=== PATIENT | male | born 1970 | race Caucasian/White ===

== ENCOUNTER 2020-03-02 10:53 | Emergency (ER) | payer OTHER, SELFPAY ==
--- NOTE | ~2020-03-02 | XR_ITS ---
EXAMINATION: XR shoulder RT min 2V DATE: 03/02/2020 11:40 INDICATION: Right shoulder pain TECHNIQUE: AP internally and externally rotated, AP oblique externally rotated and transscapular Y vi ews of the right shoulder were obtained. COMPARISON: None FINDINGS: Normal alignment. Age-indeterminate fracture at the anterior right fourth rib. No other fractures mellissa ntified. Glenohumeral joint is normal. Mild acromioclavicular osteoarthritis. Bone island at the righ t humeral head. Soft tissues are unremarkable. Right lung is clear with no airspace opacities, pleura l effusion or pneumothorax. IMPRESSION: 1. Age-indeterminate fracture along the anterior right fourth rib. 2. Mild right acromioclavicular osteoarthritis. Reviewed, dictated and finalized at location A.
[2020-03-02 11:00] VITALS: BP 156/81; PULSE 68; RESP 16; TEMP 36.7; O2SAT 95
[2020-03-02] MEDS: KETOROLAC (*BKC) 60 MG/2 ML VIAL IM (11:43)
--- NOTE | 2020-03-02 11:53 | ED.UPPEXIN ---
HPI - Extremity Injury (Upper) General Chief Complaint: Extremity Injury, Upper Stated Complaint: R shoulder Pain History of Present Illness HPI narrative: this is a 49-year-old male presents with right shoulder pain with decreased range of motion having pain in the right shoulder that he rates at about 8/10. No known direct injury has been shooting his firearm at the at shooting range and subsequent to that has been having right shoulder discomfort, there is no numbness or tingling in his in his arm has a good brisk radial pulse on the right with decreased range of motion and tenderness in the shoulder with palpation and movement. Has tried [id number] Aleve with minimal relief. Called his primary care physician [facility] the [facility] and told him to have the shoulder x-rayed at the nearest emergency department. complaint: injury to: right Other Extremity Injury: Right: shoulder ( pain with decreased range of motion) Handedness: right Place: home Severity: moderate Relieving factors: immobilization and medication Exacerbating factors: movement of extremity Context: other ( uncertain) Related Data Home Medications Medication Instructions Recorded Confirmed atorvastatin 20 mg PO DAILY 03/02/20 03/02/20 esomeprazole magnesium [Nexium] 40 mg PO DAILY 03/02/20 03/02/20 gabapentin 300 mg PO DAILY 03/02/20 03/02/20 hydrochlorothiazide 25 mg PO DAILY 03/02/20 03/02/20 ibuprofen 200 mg PO Q6H PRN 03/02/20 03/02/20 lisinopril 40 mg PO DAILY 03/02/20 03/02/20 Allergies Allergy/AdvReac Type Severity Reaction Status Date / Time No Known Allergies Allergy Verified 03/02/20 11:18 Review of Systems Review of Systems: All systems reviewed & are unremarkable except as noted in HPI and below [facility] Past Medical History Medical History HTN (hypertension) Social History Social History Alcohol intake: current Exam Const: General: no acute distress and alert Orientation/consciousness: patient oriented x3 HENMT: Head: normal to inspection Eyes: Conjunctivae: conjunctivae normal Pupils: Equal, round and reactive pupils present Neck: Neck: normal visual inspection, no lymphadenopathy and no meningeal signs Lymphatic: no lymphadenopathy noted Chest: Chest palpation & inspection: normal inspection of the chest Resp: Effort & Inspection: normal respiratory effort Auscultation: clear to auscultation bilaterally Cardio: Rate: regular rate Rhythm: regular rhythm GI: GI Palp: Yes Soft to palpation Back/Spine/Pelvis: Back: no CVA tenderness Skin: General skin exam: normal color Rashes: no rashes Extrem: Other: right shoulder with some decreased range of motion and limited range of motion with provocative movements, does have tenderness in the bicipital groove Course Course Emergency Course: after reassessment after giving IM Toradol the patient says that he can feel some relief in his pain level. Advised to follow-up with his primary care physician at the [facility] for possible MRI. Critical Care Time Critical Care Time Critical Care Time: No Discharge Plan Discharge Clinical Impression: Right shoulder strain Qualifiers: Encounter type: initial encounter Qualified Code(s): S46.911A - Strain of unspecified muscle, fascia and tendon at shoulder and upper arm level, right arm, initial encounter Patient Disposition: Home, Self-Care Condition: Stable Instructions: Antibiotic Form, Rotator Cuff Injury (ED) Additional Instructions: take medicine as prescribed, and follow-up with primary care physician for further evaluation and treatment. Prescriptions: New tramadol [Ultram] 50 mg tablet 50 mg PO Q6H PRN (Reason: pain) Qty: 20 RF: 0 No Action atorvastatin 20 mg Tablet 20 mg PO DAILY RF: 0 ibuprofen 200 mg Capsule 200 mg PO Q6H PRN (Reason: Pain) RF: 0 esomeprazole magnesium [Nexium]
== END 2020-03-02 12:04 | disposition home or self-care (01) ==
PROVIDERS: Emergency Provider Emergency Medicine
DX: S46.911A Strain of unspecified muscle, fascia and tendon at shoulder and upper arm level, right arm, initial encounter (principal)
CPT/HCPCS: 73030; 96372; 99283; J1885

== ENCOUNTER 2020-05-19 21:44 | Emergency (ER) | payer OTHER, SELFPAY ==
--- NOTE | ~2020-05-19 | CT_ITS ---
EXAMINATION: CT pelvis wo con DATE: 05/19/2020 23:02 INDICATION: Left pelvic pain after fall from ladder TECHNIQUE: Computed tomography (CT) of the pelvis was performed without intravenous contrast. The dos e-length product (DLP) was 811.11 mGy-cm. Automated exposure control and iterative reconstruction janine hnique were employed. COMPARISON: None FINDINGS: There is no fracture. Bone alignment is normal. The femoral heads are well-seated in their acetabula. Calcified atherosclerosis is noted. There are bilateral inguinal hernias containing fat. T he appendix is normal. There are no dilated loops of bowel. No free fluid is present in the pelvis. IMPRESSION: 1. No acute osseous abnormality. Reviewed, dictated and finalized at location A.
--- NOTE | ~2020-05-19 | CT_ITS ---
EXAMINATION: CT thoracic lumbar wo con DATE: 05/19/2020 23:03 INDICATION: Back pain after fall from ladder TECHNIQUE: Computed tomography (CT) of the thoracic and lumbar spine was performed without intravenou s contrast. The dose-length product (DLP) was 2101.00 mGy-cm. Iterative reconstruction was used. COMPARISON: None FINDINGS: Thoracic spine: There is no fracture, dislocation, or subluxation. The vertebral body heights and ali gnment are normal. There is mild loss of intervertebral disc space height at several levels of the th oracic spine. The prevertebral soft tissues are normal. Small degenerative osteophytes project from t he anterior endplates of multiple vertebral bodies. There is a 1 mm nonobstructing stone of the left kidney upper pole. Lumbar spine: There is no fracture, dislocation, or subluxation. The vertebral body heights, alignmen t, and intervertebral disc spaces are normal. Minimal posterior disc bulges are seen at L4-5 and L5-S 1. Calcified atherosclerosis is noted. There is a 1.3 cm cyst of the right kidney. IMPRESSION: 1. Mild thoracic and lumbar spondylosis without acute findings. Reviewed, dictated and finalized at location A.
[2020-05-19 22:00] VITALS: BP 142/80; PULSE 70; RESP 20; TEMP 36.6; O2SAT 97
--- NOTE | 2020-05-19 22:19 | ED.BACK ---
HPI - Back Pain/Injury General Chief Complaint: Back Pain/Injury Stated Complaint: back pain Time Seen by Provider: 05/19/20 22:19 Source: patient Mode of arrival: ambulatory Limitations: no limitations History of Present Illness HPI Narrative: 49-year-old man comes in today complaining of left low back pain that radiates down his left leg that started earlier this evening. Patient states that he was standing 5 or 6 ft upon a ladder and fell backwards landing on his left buttock. He denies any neck or head pain and did not hit his head. He denies any numbness or tingling. He states that movement and walking is very painful in his back and buttock. Is no history of back pain or injury or surgery. MD elicited complaint: back pain and back injury Onset (ago): hour(s) (4) Timing: constant Severity: severe Similar Symptoms Previously: No Quality: sharp and aching Location: lumbar spine and left lower back Radiation: buttocks and left upper leg Exacerbating factors: movement and walking Relieving factors: none Context: fall Related Data Home Medications Medication Instructions Recorded Confirmed atorvastatin 20 mg PO DAILY 03/02/20 05/19/20 esomeprazole magnesium [Nexium] 40 mg PO DAILY 03/02/20 05/19/20 gabapentin 300 mg PO DAILY 03/02/20 05/19/20 hydrochlorothiazide 25 mg PO DAILY 03/02/20 05/19/20 ibuprofen 200 mg PO Q6H PRN 03/02/20 05/19/20 lisinopril 40 mg PO DAILY 03/02/20 05/19/20 Allergies Allergy/AdvReac Type Severity Reaction Status Date / Time No Known Allergies Allergy Verified 03/02/20 11:18 Review of Systems Constitutional: Constitutional: Denies weakness Cardiovascular: Cardiovascular: Denies chest pain and Denies radiating jaw, neck or arm pain Respiratory: Respiratory: Denies cough, Denies dyspnea and Denies wheezing Gastrointestinal: Gastrointestinal: Denies abdominal pain, Denies nausea and Denies vomiting Genitourinary: Genitourinary: Denies hematuria, Denies dysuria and Denies urinary frequency Musculoskeletal: Musculoskeletal: Reports back pain, Denies arthralgias and Denies joint swelling Integumentary/Breasts: Skin/Breast: Denies pruritus, Denies erythema and Denies rash Neurologic: Denies vertigo, Denies dizziness and Denies syncope Hematologic/Lymphatic: Hematologic/Lymphatic: Denies easy bleeding and Denies easy bruising Allergic/Immunologic: Allergic/Immunologic: Denies lip swelling and Denies tongue swelling PMF Past Medical History Medical History (Updated 05/19/20 @ 23:37 by Musa Foster MD) HTN (hypertension) Surgical History Surgical History H/O knee surgery multiple right History of ankle surgery multiple right Social History Social History Smoking status: Never smoker Alcohol intake: current Substance use: never Living arrangements: with family Gender identity (if verbalized by the patient): Male Exam Const: General: alert Nutritional Appearance: obese Orientation/consciousness: patient oriented x3 Limitations: no limitations Other: moderate to severe acute distress. Eyes: Conjunctivae: conjunctivae normal EOM: EOMs intact bilaterally Resp: Effort & Inspection: normal respiratory effort and not labored Auscultation: clear to auscultation bilaterally, no rales, no rhonchi and no wheezes Cardio: Rate: regular rate Rhythm: regular rhythm Heart sounds: no murmurs Back/Spine/Pelvis: Other: Tenderness palpation over the left SI joint and the left posterior hip. Skin: General skin exam: normal color, no jaundice and no pallor Rashes: no rashes Neuro: General: patient oriented x3, moves all extremities, no focal motor deficits and CN's II-XI intact bilaterally Speech: normal speech Gait exam (Neuro): Normal gait present Extrem: General: normal to inspection and no clubbing, cyanosis or edema Psych: Appearance: gr
[2020-05-19] MEDS: ONDANSETRON INJ 4 MG/2 ML VIAL IV PUSH (22:35)
[2020-05-19] MEDS: HYDROmorphone HCL INJ (*CRX) 2 MG/ML VIAL 0.5 MG IV PUSH ×2 (22:35→22:50)
[2020-05-19 23:00] VITALS: BP 140/72; PULSE 77; RESP 17; O2SAT 97
--- NOTE | 2020-05-19 23:13 | PC.NURSE ---
Report to Angela RN
[2020-05-20 00:20] VITALS: BP 120/77; PULSE 70; RESP 18; TEMP 36.6; O2SAT 98
== END 2020-05-20 00:20 | disposition home or self-care (01) ==
PROVIDERS: Emergency Provider Emergency Medicine
DX: M54.30 Sciatica, unspecified side (principal); S39.92XA Unspecified injury of lower back, initial encounter; W11.XXXA Fall on and from ladder, initial encounter
CPT/HCPCS: 72128; 72131; 72192; 96374; 96375; 99284; J1170; J2405

== ENCOUNTER 2023-05-29 13:29 | Emergency (ER) | payer OTHER, SELFPAY ==
[2023-05-29] VITALS (7 sets, daily range): BP systolic 126–170; BP diastolic 67–74; PULSE 68–80; RESP 12–25; TEMP 36.6; O2SAT 92–96
--- NOTE | ~2023-05-29 | XR_ITS ---
EXAMINATION: XR chest 1V portable INDICATION: Chest pain TECHNIQUE: Portable AP chest at 1400 hours COMPARISON: None available FINDINGS: There is mild diffuse interstitial pattern. No pleural effusion or pneumothorax. The cardio mediastinal silhouette is normal. IMPRESSION: 1. Mild pulmonary edema. Reviewed, dictated and finalized at location A. IMPRESSION: 1. Mild pulmonary edema.
--- NOTE | 2023-05-29 13:33 | ECG_ITS ---
Measurements Intervals [place] Rate: 70 P: 68 [place]: 148 QRS: 89 QRSD: 103 T: 44 QT: 379 QTc: 411 Interpretive Statements SINUS RHYTHM NORMAL ECG NO PREVIOUS ECG AVAILABLE FOR COMPARISON Electronically Signed On 05-31-2023 8:34:46 CDT by Rc Rivera M.D.
[2023-05-29] MEDS: ASPIRIN 81 MG CHEWABLE TABLET 324 MG PO (13:52)
[2023-05-29] MEDS: NITROGLYCERIN SL 0.4 MG TABLET SUBLINGUAL ×2 (13:52→14:03)
[2023-05-29 13:57] LABS: Basophils Absolute Auto 0.08 K/mm3 (0.00-0.10); Basophils Percent Auto 0.9 % (0.0-1.0); Eosinophils Absolute Auto 0.15 K/mm3 (0.02-0.50); Eosinophils Percent Auto 1.6 % (1.0-6.0); Hematocrit 48.2 % (40.0-54.0); Hemoglobin 16.6 g/dL (14.0-18.0); Immature Granulocyte Absolute 0.03 K/mm3 (0.00-0.00); Immature Granulocyte Percent A 0.3 % (0.0-0.0); Lymphocytes Absolute Auto 3.25 K/mm3 (1.10-4.50); Lymphocytes Percent Auto 35.5 % (18.0-42.0); Mean Corpuscular HGB Conc 34.4 g/dL (32.0-36.0); Mean Corpuscular Hemoglobin 30.8 pg (27.0-31.0); Mean Corpuscular Volume 89.4 fL (78.0-102.0); Mean Platelet Volume 11.3 fl (8.7-11.0); Monocytes Absolute Auto 0.82 K/mm3 (0.10-0.90); Neutrophils Absolute Auto 4.8 K/mm3 (1.7-7.2); Neutrophils Percent Auto 52.7 % (50.0-70.0); Platelet Count Result 213 K/mm3 (150-420); Red Blood Count 5.39 M/mm3 (4.70-6.10); Red Cell Distribution Width 12.2 % (11.6-14.4); White Blood Count 9.2 K/mm3 (4.8-10.8)
--- NOTE | 2023-05-29 14:04 | PC.NURSE ---
1355 nirto #1 given pain 5/10 b/p 150/67 P 73 R 20 SAT 94 1402 NITRO #2 given pain 3/10 B/P 140/67 P 77 R 20 SAT 94 1412 PT STATES CHEST PAIN IS GONE
[2023-05-29 14:14] LABS: INR 1.1; Partial Thromboplastin Time 29.1 SEC (23.90-30.70); Prothrombin Time 11.5 Seconds (9.50-12.10)
[2023-05-29 14:17] LABS: D Dimer 0.39 mg/L (0.19-0.50)
[2023-05-29 14:23] LABS: Alanine Aminotransferase 111 U/L (16-63); Albumin Level 3.6 g/dL (3.4-5.0); Alkaline Phosphatase 135 U/L (46-116); Anion Gap 10 mmol/L (8-16); Aspartate Amino Transferase 43 U/L (15-37); Bilirubin,Total 0.4 mg/dL (0.00-1.00); Blood Urea Nitrogen 9 mg/dL (7-18); Calcium 9.4 mg/dL (8.5-10.1); Carbon Dioxide 25 mmol/L (21-32); Chloride 103 mmol/L (98-108); Estimated Glomerular Filt Rate > 60; Glucose 133 mg/dL (70-99); Lipase 116 U/L (16-77); NT Pro B Type Natriuretic Pept 44 pg/mL (0-125); Osmolality Calculated 286 mOsm/kg (285-295); Potassium 3.8 mmol/L (3.5-5.1); Sodium 138 mmol/L (136-145); Total Protein 6.9 g/dL (6.4-8.2); Troponin I 5.1 ng/L (0.00-60.4)
[2023-05-29 14:24] LABS: CRP < 0.5 mg/dL (0.0-0.9)
--- NOTE | 2023-05-29 14:36 | ED.CHESTPAIN ---
HPI - Chest Pain General Chief Complaint: Chest Pain Stated Complaint: chest pain Time Seen by Provider: 05/29/23 13:35 Source: patient and family Mode of arrival: ambulatory Limitations: no limitations History of Present Illness HPI narrative: this is a 52-year-old male that presents with chest pain that he rates about a 5 out of 10 has been having episodic chest pain off and on for the last month or so he has frequent migration of his pain usually in his right side and his back and currently it has settled into his chest with no diaphoresis no shortness of breath no nausea vomiting. Patient does have hyperlipidemia is a tobacco user and a family history of heart disease. MD complaint: chest discomfort Onset (ago): month(s) Timing of current episode: episodic Prior episodes: Yes Onset: during rest Pain location: left chest Pain radiation: none Severity: mild Pain scale (0-10): 5 Quality: tightness and aching Relieving factors: nitroglycerin Exacerbating factors: nothing Related Data Home Medications Medication Instructions Recorded Confirmed atorvastatin 20 mg tablet 20 mg PO DAILY 03/02/20 05/29/23 hydrochlorothiazide 25 mg tablet 25 mg PO DAILY 03/02/20 05/29/23 lisinopril 40 mg tablet 40 mg PO DAILY 03/02/20 05/29/23 omeprazole 40 mg capsule,delayed 40 mg PO BID 05/29/23 05/29/23 release Allergies Allergy/AdvReac Type Severity Reaction Status Date / Time No Known Allergies Allergy Verified 05/29/23 13:57 Review of Systems Review of Systems: All systems reviewed & are unremarkable except as noted in HPI and below PMFSH Past Medical History Medical History HTN (hypertension) Surgical History Surgical History H/O knee surgery multiple right History of ankle surgery multiple right Social History Social History Smoking status: Never smoker Alcohol intake: current Substance use: never Living arrangements: with family Gender identity (if verbalized by the patient): Male Exam Const: General: healthy appearing Nutritional Appearance: well nourished Orientation/consciousness: patient oriented x3 Limitations: no limitations HENMT: Head: normal to inspection Eyes: Conjunctivae: conjunctivae normal Pupils: Equal, round and reactive pupils present EOM: EOMs intact bilaterally Neck: Neck: normal visual inspection Chest: Chest palpation & inspection: normal inspection of the chest and tenderness Other: Reproducible chest pain Resp: Effort & Inspection: normal respiratory effort Auscultation: clear to auscultation bilaterally Cardio: Rate: regular rate Rhythm: regular rhythm GI: GI Palp: Yes Soft to palpation Back/Spine/Pelvis: Back: no CVA tenderness Skin: General skin exam: normal color Rashes: no rashes Wounds: no wounds Neuro: General: patient oriented x3 and moves all extremities Extrem: General: normal to inspection Psych: Mental Status: mental status grossly normal Course Course Emergency Course: patient 2 nitro sublingual which relieved his pain completely EKG shows normal sinus rhythm no ST or T changes troponin negative patient was given a full-dose aspirin, the pain is reproducible in the epigastric and sternal border on the left with no radiation Of his pain. EKG shows normal sinus rhythm, chest x-ray shows mild pulmonary edema with a normal BNP and the rest of his blood work was unremarkable. Vital Signs Vital signs: Vital Signs Temperature 36.6 C 05/29/23 13:29 Pulse Rate 74 05/29/23 13:29 Respiratory Rate 16 05/29/23 13:29 Blood Pressure 170/74 H 05/29/23 13:29 Pulse Oximetry 96 05/29/23 13:29 Oxygen Delivery Room Air 05/29/23 13:29 Temperature 36.6 C 05/29/23 13:29 Pulse Rate 79 05/29/23 13:56 Respiratory Rate 16 05/29/23 13:29 Blood Pr
== END 2023-05-29 14:51 | disposition home or self-care (01) ==
PROVIDERS: Emergency Provider Emergency Medicine
DX: R07.89 Other chest pain (principal); E78.5 Hyperlipidemia, unspecified; I10 Essential (primary) hypertension; Z82.49 Family history of ischemic heart disease and other diseases of the circulatory system; Z79.891 Long term (current) use of opiate analgesic
CPT/HCPCS: 36415; 71045; 80053; 83690; 83880; 84484; 85025; 85380; 85610; 85730; 86140; 93005; 99284; A9270

== ENCOUNTER 2023-06-23 20:20 | Emergency (ER) | payer OTHER, SELFPAY ==
--- NOTE | ~2023-06-23 | CT_ITS ---
EXAMINATION: CT soft tiss nk chst ab pel w DATE: 06/23/2023 22:22 INDICATION: Neck pain. History of lung cancer. TECHNIQUE: Computed tomography (CT) of the neck, chest, abdomen, and pelvis was performed with 100 c c Omnipaque 350 intravenous contrast. The dose-length product was 2063.95 mGy-cm. Automated exposure control and iterative reconstruction technique were employed. COMPARISON: CT pelvis dated 05/19/2020 and chest x-ray dated 05/29/2023 FINDINGS: No intracranial abnormality identified. No intracranial abnormal enhancement. There are mil dly enlarged lymph nodes at the angle the mandible bilaterally, left greater than right. Cannot exclu de metastatic disease. The mucosal and parapharyngeal spaces are symmetric. No significant abnormalit y of the mucosal space. Thyroid gland is unremarkable. No significant vascular abnormality. Enlarged left hilar lymph nodes which are low density, largest measuring 1.9 x 1.6 cm. Heart size nor mal. No significant pleural or pericardial effusion. There is a 1.8 cm nodule with irregular margins. Segment left lower lobe abutting the pleural surface. There is emphysema. No endobronchial lesions. No pneumothorax. Nodular liver surface, compatible with cirrhosis. There is splenomegaly. The portal vein is not adequ ately opacified. Cannot exclude portal venous thrombosis. There were varices in the upper abdomen anthony rounding the esophagus, stomach and liver. Nonobstructive bowel gas pattern. There is atherosclerosis of the aorta. The pancreas, adrenal glands are unremarkable. There is a small low-density lesion rig ht kidney, most likely benign cysts. There is a 2 mm nonobstructing left renal stone. IMPRESSION: 1. Left lower lobe mass superior segment measuring 1.9 x 1.6 cm, consistent with bronchogenic carcino ma until proven otherwise. Enlarged left hilar and bilateral cervical lymph nodes, suspicious for met astatic disease. 2: Cirrhosis of the liver with probable portal hypertension with splenomegaly. Reviewed, dictated and finalized at location A. IMPRESSION: 1. Left lower lobe mass superior segment measuring 1.9 x 1.6 cm, consistent wit h bronchogenic carcinoma until proven otherwise. Enlarged left hilar and bilate ral cervical lymph nodes, suspicious for metastatic disease. 2: Cirrhosis of the liver with probable portal hypertension with splenomegaly.
[2023-06-23 20:30] VITALS: BP 156/87; PULSE 108; RESP 20; TEMP 37; O2SAT 97
--- NOTE | 2023-06-23 20:36 | ED.GENADULT ---
HPI - General Adult General Chief complaint: Abdominal Pain Stated complaint: epigastric pain History of Present Illness HPI narrative: 52yo man recently diagnosed new left lower lung malignant mass most likely compatible with primary bronchogenic carcinoma, awaiting follow-up for PET and biopsy, presents with new onset epigastric, left upper abdominal pain, and periumbilical pain, worse with any movement or breathing. Also new pain in left neck. No fevers or chills. Having regular bowel movements. Recently constipated but took Miralax which has resolved the constipation. Related Data Home Medications Medication Instructions Recorded Confirmed atorvastatin 20 mg tablet 20 mg PO DAILY 03/02/20 05/29/23 hydrochlorothiazide 25 mg tablet 25 mg PO DAILY 03/02/20 05/29/23 lisinopril 40 mg tablet 40 mg PO DAILY 03/02/20 05/29/23 omeprazole 40 mg capsule,delayed 40 mg PO BID 05/29/23 05/29/23 release Allergies Allergy/AdvReac Type Severity Reaction Status Date / Time No Known Allergies Allergy Verified 05/29/23 13:57 Review of Systems Review of Systems: All systems reviewed & are unremarkable except as noted in HPI and below Constitutional: Constitutional: Denies chills and Denies fever(s) ENT: Denies dysphagia and Denies dizziness Cardiovascular: Cardiovascular: Denies chest pain Respiratory: Respiratory: Denies chest congestion, Denies cough and Denies dyspnea Gastrointestinal: Gastrointestinal: Reports abdominal pain, Reports bloating, Reports constipation and Reports nausea Genitourinary: Genitourinary: Reports oliguria Comments: feels dehydrated - his doc stopped his diuretics PMFSH Past Medical History Medical History HTN (hypertension) Surgical History Surgical History H/O knee surgery multiple right History of ankle surgery multiple right Social History Social History Smoking status: Never smoker Alcohol intake: current Substance use: never Living arrangements: with family Gender identity (if verbalized by the patient): Male Exam Const: General: healthy appearing and no acute distress Nutritional Appearance: well nourished Eyes: Conjunctivae: conjunctivae normal Resp: Effort & Inspection: normal respiratory effort Auscultation: clear to auscultation bilaterally Cardio: Rate: regular rate Rhythm: regular rhythm Heart sounds: no murmurs GI: Inspection: non-distended GI Palp: Yes Soft to palpation and No Tenderness to palpation present (GI) Skin: General skin exam: normal color, no jaundice and no pallor Medical Decision Making MDM Narrative Medical decision making narrative: LUQ abd pain, neck pain DDx metastatic malignancy, pancreatitis, indigestion, colitis. Needs CT, belly labs, analgesia. Looks dehydrated, needs IV fluids. Lab Data 06/23/23 20:48 06/23/23 20:48 Labs: Lab Results 06/23/23 Range/Units 20:48 WBC 13.4 H (4.8-10.8) K/mm3 RBC 5.23 (4.70-6.10) M/mm3 Hgb 16.5 (14.0-18.0) g/dL Hct 48.4 (40.0-54.0) % MCV 92.5 (78.0-102.0) fL MCH 31.5 H (27.0-31.0) pg MCHC 34.1 (32.0-36.0) g/dL RDW 12.8 (11.6-14.4) % Plt Count 224 (150-420) K/mm3 MPV 11.5 H (8.7-11.0) fl Immature Gran % (Auto) 0.3 H (0.0-0.0) % Neut % (Auto) 65.9 (50.0-70.0) % Lymph % (Auto) 22.3 (18.0-42.0) % [place] % (Auto) 10.6 (2.0-11.0) % Eos % (Auto) 0.3 L (1.0-6.0) % Baso % (Auto) 0.6 (0.0-1.0) % Lymph # (Auto) 2.98 (1.10-4.50) K/mm3 [place] # (Auto) 1.41 H (0.10-0.90) K/mm3 Eos # (Auto) 0.04 (0.02-0.50) K/mm3 Baso # (Auto) 0.08 (0.00-0.10) K/mm3 Abs Immat Gran (auto) 0.04 H (0.00-0.00) K/mm3 Absolute Neuts (auto) 8.8 H (1.7-7.2) K/mm3 Absolute Nucleated RBC 0.00 (0.00-0.00) K/mm3 Nucleated RBC % 0.0 (0-0.0) %
[2023-06-23 20:51] LABS: Basophils Absolute Auto 0.08 K/mm3 (0.00-0.10); Basophils Percent Auto 0.6 % (0.0-1.0); Eosinophils Absolute Auto 0.04 K/mm3 (0.02-0.50); Eosinophils Percent Auto 0.3 % (1.0-6.0); Hematocrit 48.4 % (40.0-54.0); Hemoglobin 16.5 g/dL (14.0-18.0); Immature Granulocyte Absolute 0.04 K/mm3 (0.00-0.00); Immature Granulocyte Percent A 0.3 % (0.0-0.0); Lymphocytes Absolute Auto 2.98 K/mm3 (1.10-4.50); Lymphocytes Percent Auto 22.3 % (18.0-42.0); Mean Corpuscular HGB Conc 34.1 g/dL (32.0-36.0); Mean Corpuscular Hemoglobin 31.5 pg (27.0-31.0); Mean Corpuscular Volume 92.5 fL (78.0-102.0); Mean Platelet Volume 11.5 fl (8.7-11.0); Monocytes Absolute Auto 1.41 K/mm3 (0.10-0.90); Monocytes Percent Auto 10.6 % (2.0-11.0); Neutrophils Absolute Auto 8.8 K/mm3 (1.7-7.2); Neutrophils Percent Auto 65.9 % (50.0-70.0); Platelet Count Result 224 K/mm3 (150-420); Red Blood Count 5.23 M/mm3 (4.70-6.10); Red Cell Distribution Width 12.8 % (11.6-14.4); White Blood Count 13.4 K/mm3 (4.8-10.8)
[2023-06-23] MEDS: SODIUM CHLORIDE 0.9% IV 1,000 ML 999 ML IV CONT (20:51)
[2023-06-23] MEDS: FAMOTIDINE 20 MG/2 ML VIAL 40 MG IV PUSH (20:52)
[2023-06-23] MEDS: KETOROLAC 30 MG/ML VIAL (*BKC) IV PUSH (20:53)
[2023-06-23] MEDS: MORPHINE SULFATE (*CRX) 4 MG/ML INJ IV PUSH (20:54)
[2023-06-23 21:09] LABS: Alanine Aminotransferase 58 U/L (16-63); Albumin Level 3.4 g/dL (3.4-5.0); Alkaline Phosphatase 168 U/L (46-116); Anion Gap 12 mmol/L (8-16); Aspartate Amino Transferase 37 U/L (15-37); Blood Urea Nitrogen 6 mg/dL (7-18); Calcium 9.3 mg/dL (8.5-10.1); Carbon Dioxide 24 mmol/L (21-32); Chloride 103 mmol/L (98-108); Estimated Glomerular Filt Rate > 60; Glucose 94 mg/dL (70-99); Lipase 77 U/L (16-77); Magnesium 1.8 mg/dL (1.8-2.4); Osmolality Calculated 285 mOsm/kg (285-295); Potassium 3.5 mmol/L (3.5-5.1); Sodium 139 mmol/L (136-145); Total Protein 7.2 g/dL (6.4-8.2)
[2023-06-23 21:12] LABS: Lactic Acid Reflex 1.8 mmol/L (0.4-2.0)
[2023-06-23] MEDS: diphenhydrAMINE HCl INJ 50 MG/ML VIAL 25 MG IV PUSH (22:36)
[2023-06-23] MEDS: PROCHLORPERAZINE EDISYLATE 10 MG/2 ML VIAL IV PUSH (22:36)
[2023-06-23 23:16] VITALS: BP 148/80; PULSE 98; RESP 18; TEMP 36.8; O2SAT 97
== END 2023-06-23 23:16 | disposition home or self-care (01) ==
PROVIDERS: Emergency Provider Emergency Medicine
DX: R10.10 Upper abdominal pain, unspecified (principal); M54.2 Cervicalgia; R91.8 Other nonspecific abnormal finding of lung field; I10 Essential (primary) hypertension
CPT/HCPCS: 36415; 70491; 71260; 74177; 80053; 83605; 83690; 83735; 85025; 96361; 96374; 96375; 99284; J0780; J1200; J1885; J2270; J7030; Q9967

== ENCOUNTER 2023-08-02 18:08 | Emergency (ER) | payer OTHER, SELFPAY ==
--- NOTE | ~2023-08-02 | CT_ITS ---
EXAMINATION: CT cervical spine wo con DATE: 08/02/2023 21:51 INDICATION: L Radicular pain TECHNIQUE: Computed tomography (CT) of the cervical spine was performed without intravenous contrast. Automated exposure control and iterative reconstruction technique were employed. The dose-length pro duct was 466.91 mGy-cm. COMPARISON: CT soft tissue neck chest abdomen and pelvis 06/23/2023. FINDINGS: Vertebral Body Alignment: Intact. Craniocervical and atlantoaxial alignment: Moderate degenerative change. Alignment intact. Osseous structures/fracture: No evidence of a lytic or blastic process in the visualized spine. No e vidence of acute fracture. Cervical soft tissues: The paraspinal soft tissues planes are maintained. Trace bilateral mastoid flu id. 10 mm left upper lobe pulmonary nodule. Bilateral enlarged anterior cervical chain lymph nodes. Degenerative changes: No significant degenerative changes. IMPRESSION: No acute fracture or traumatic malalignment in the cervical spine. No severe central canal or neural foraminal narrowing. 10 mm left upper lobe pulmonary nodule, significantly decreased in size may represent interval treatm ent response or a resolving infectious/inflammatory focus depending on the clinical context. Grossly stable anterior cervical chain lymphadenopathy. Reviewed, dictated and finalized at location K. BATOR MACHINE OPERATOR IMPRESSION: No acute fracture or traumatic malalignment in the cervical spine. No severe central canal or neural foraminal narrowing. 10 mm left upper lobe pulmonary nodule, significantly decreased in size may rep resent interval treatment response or a resolving infectious/inflammatory focus depending on the clinical context. Grossly stable anterior cervical chain lymphadenopathy.
--- NOTE | ~2023-08-02 | US_ITS ---
EXAMINATION: US venous doppler UE LT DATE: 08/02/2023 19:32 INDICATION: swelling . TECHNIQUE: Grayscale ultrasound images without and with compression and Doppler ultrasound images of the left upper extremity veins were obtained. COMPARISON: None. FINDINGS: The visualized portions of the left internal jugular vein, subclavian vein, axillary vein, brachial v eins, basilic vein, cephalic vein, radial vein, and ulnar vein are patent. IMPRESSION: No deep venous thrombosis. Reviewed, dictated and finalized at location K. CTOR OF SPECIAL EDUCATION IMPRESSION: No deep venous thrombosis.
[2023-08-02 18:10] VITALS: BP 140/86; PULSE 80; RESP 18; TEMP 37.6; O2SAT 100
--- NOTE | 2023-08-02 18:45 | ECG_ITS ---
Measurements Intervals [place] Rate: 76 P: 72 [place]: 135 QRS: 71 QRSD: 89 T: 42 QT: 381 QTc: 430 Interpretive Statements SINUS RHYTHM COMPARED TO ECG 05/29/2023 13:39:44 NO SIGNIFICANT CHANGES Electronically Signed On 08-03-2023 10:26:34 [employer] by Ej Gutierrez M.D.
[2023-08-02] MEDS: HYDROmorphone HCL INJ (*CRX) 1 MG/ML SYR IV PUSH (21:34)
[2023-08-02] MEDS: KETOROLAC 15 MG/ML VIAL (*BKC) IV PUSH (21:34)
[2023-08-02 21:41] VITALS: BP 136/82; PULSE 76; RESP 18; O2SAT 99
[2023-08-02] MEDS: GABAPENTIN 300 MG CAPSULE 600 MG PO (21:44)
--- NOTE | 2023-08-02 21:53 | ED.GENADULT ---
HPI - General Adult General Chief complaint: Extremity Problem,Nontraumatic Stated complaint: left arm pain Time Seen by Provider: 08/02/23 18:59 History of Present Illness HPI narrative: This is a 52-year-old male with metastatic lung cancer presenting with left arm pain. Patient had a Port-A-Cath installed yesterday. After laying on the operating bed for several hours he developed left shoulder pain. He has pain extending throughout his entire left arm. He has not taken anything for pain control. Sensation intact. Patient cannot lift his arm but is due to pain as opposed to weakness. Related Data Home Medications Medication Instructions Recorded Confirmed atorvastatin 20 mg tablet 20 mg PO DAILY 03/02/20 05/29/23 hydrochlorothiazide 25 mg tablet 25 mg PO DAILY 03/02/20 05/29/23 lisinopril 40 mg tablet 40 mg PO DAILY 03/02/20 05/29/23 omeprazole 40 mg capsule,delayed 40 mg PO BID 05/29/23 05/29/23 release Allergies Allergy/AdvReac Type Severity Reaction Status Date / Time No Known Allergies Allergy Verified 08/02/23 18:16 [facility] Past Medical History Medical History HTN (hypertension) Metastatic primary lung cancer Surgical History Surgical History H/O knee surgery multiple right History of ankle surgery multiple right Social History Social History Smoking status: Never smoker Alcohol intake: current Substance use: never Living arrangements: with family Gender identity (if verbalized by the patient): Male Exam Narrative: APPEARANCE: No apparent distress. Head: atraumatic. EYES: EOMI, NOSE: Atraumatic NECK: Trachea midline RESPIRATORY: No increased rate of breathing CARDIOVASCULAR: RRR, ABDOMINAL: Non-distended MUSCULOSKELETAl: Focal exam of the left upper extremity revealed no obvious deformities. Pulses are intact. Cap refills less than 2 seconds. Field Servicer strength is intact. Diffuse tenderness to palpation in the left trapezius, deltoid biceps and triceps. Function of the elbow and shoulder is limited due to pain. Re-evaluation after pain medication showed the patient is able to move his arm without deficits. NEURO: Alert. Moving 4/4 extremities SKIN:: Warm, dry. Normal color PSYCHIATRIC: Normal affect Course Vital Signs Vital signs: Vital Signs Temperature 99.6 F 08/02/23 18:10 Pulse Rate 80 08/02/23 18:10 Respiratory Rate 18 08/02/23 18:10 Blood Pressure 140/86 08/02/23 18:10 Pulse Oximetry 100 08/02/23 18:10 Oxygen Delivery Room Air 08/02/23 18:10 Temperature 99.6 F 08/02/23 18:10 Pulse Rate 76 08/02/23 21:41 Respiratory Rate 18 08/02/23 21:41 Blood Pressure 136/82 08/02/23 21:41 Pulse Oximetry 99 08/02/23 21:41 Oxygen Delivery Room Air 08/02/23 18:10 Medical Decision Making MDM Narrative Medical decision making narrative: -Course: 52-year-old male metastatic lung cancer presenting with left-sided shoulder and arm pain. History and physical are most consistent with peripheral neuropathy, likely due to his immobilization on the operative table during his procedure yesterday. Patient given multiple rounds pain control which improved his symptoms. Once his pain was improved he was able to move his shoulder. Patient be discharged with pain medication instructed to follow up with primary care physician for further management -DDX includes but is not limited to: Peripheral neuropathy, cervical radiculopathy, muscle strain -Co-morbidities complicating care: Stage IV metastatic lung cancer -Social determinants of health: Patient works for [employer], lives with his Independent interpretation studies: Upper extremity DVT scan negative. -Interventions: Dilaudid 1 mg -> 0.5 mg, gabapentin 600, Tylenol 1000, Toradol 15 mg, 10 mg Valium -Shared decision making /
[2023-08-02] MEDS: HYDROmorphone HCL INJ (*CRX) 1 MG/ML SYR 0.5 MG IV PUSH (22:41)
[2023-08-02] MEDS: diazePAM INJ (*CRX) 10 MG/2 ML SYRINGE IV PUSH (22:41)
[2023-08-02] MEDS: LIDOCAINE 5% PATCH 1 PATCH TRANSDERM (22:41)
[2023-08-02 22:48] VITALS: BP 146/80; PULSE 87; RESP 17; O2SAT 94
[2023-08-02 22:49] VITALS: O2SAT 97
[2023-08-02 22:53] VITALS: BP 159/89; PULSE 89; RESP 14; O2SAT 95
--- NOTE | 2023-08-02 23:28 | PC.NURSE ---
Pt report was taken from HALIE Lafleur. This RN assumed care of patient.
[2023-08-02 23:57] VITALS: BP 150/77; PULSE 74; O2SAT 99
--- NOTE | 2023-08-03 00:03 | PC.NURSE ---
EDp Dr. Da Silva verbally okayed pt to be discharged. Pt was able to ambulate with a steady unassisted gait.
== END 2023-08-03 00:05 | disposition home or self-care (01) ==
PROVIDERS: Emergency Provider Emergency Medicine
DX: M54.16 Radiculopathy, lumbar region (principal); C34.90 Malignant neoplasm of unspecified part of unspecified bronchus or lung; I10 Essential (primary) hypertension
CPT/HCPCS: 72125; 93005; 93971; 96374; 96375; 99284; A9270; J1170; J1885; J3360